=== PATIENT | female | born 1935 | race Caucasian/White ===

== ENCOUNTER 2022-02-15 16:00 | Inpatient (IN) | payer OTHER ==
[~2022-02-15] VITALS: Ht 157.5 cm; Wt 49.9 kg
[2022-02-15 16:11] VITALS: BP_SYST 129
[2022-02-15 18:39] LABS: BASOPHILS % (AUTO) 0.7 % (0.0-2.0); EOSINOPHILS # (AUTO) 0.3 K/uL (0.0-0.4); HEMATOCRIT 32.6 % (36-48); LYMPHOCYTES # (AUTO) 1.2 K/uL (1.0-5.5); LYMPHOCYTES % (AUTO) 17.9 % (20.5-51.5); MEAN CORPUSCULAR VOLUME 75 fL (79.0-98.0); MONOCYTES # (AUTO) 1.1 K/uL (0.0-1.0); MONOCYTES % (AUTO) 17.4 % (1.7-9.3); NEUTROPHILS # (AUTO) 3.9 K/uL (1.8-7.7); PLATELET COUNT (AUTO) 269 K/uL (130-430); RED BLOOD CELL COUNT(AUTO) 4.38 MIL/uL (4.2-6.2); RED CELL DISTRIBUTION WIDTH 17.6 % (9.0-15.0); WHITE BLOOD COUNT (AUTO) 6.5 K/uL (4.8-10.8)
[2022-02-15] MEDS ORDERED: IOHEXOL 350 mgI/mL, 150 ML INFUS..BTL IV ONE (18:50)
[2022-02-15 19:45] LABS: ANION GAP 2 (5-15); CALCIUM 8.4 mg/dL (8.4-11.0); CREATININE 0.55 mg/dL (0.55-1.30); GLUCOSE 92 mg/dL (70-99); POTASSIUM 4.9 mmol/L (3.5-5.1); UREA NITROGEN, BLOOD 12 mg/dL (8-21)
[2022-02-15 20:02] LABS: ALANINE AMINOTRANSFERASE 20 U/L (12-78); ALBUMIN 2.9 g/dL (3.4-4.8); ASPARTATE AMINOTRANSFERASE 24 U/L (10-37); TOTAL BILIRUBIN 0.7 mg/dL (0.0-1.0)
[2022-02-15 20:36] LABS: CHLORIDE 85 mmol/L (98-107)
[2022-02-15] MEDS ORDERED: NACL 0.9% 1,000 ML IV ONE (20:45)
[2022-02-15 21:15] LABS: BILIRUBIN,URINE NEGATIVE (NEGATIVE); BLOOD, URINE NEGATIVE (NEGATIVE); CLARITY/URINE CLEAR (CLEAR); COLOR,URINE YELLOW (YELLOW); GLUCOSE,URINE NEGATIVE (NEGATIVE); KETONES,URINE NEGATIVE (NEGATIVE); LEUKOCYTE ESTERASE ,URINE NEGATIVE (NEGATIVE); NITRITE, URINE NEGATIVE (NEGATIVE); PH,URINE 7.5 (5.0-8.0); PROTEIN URINE TRACE (NEGATIVE); UROBILINOGEN,URINE 0.2 (0.2-1.0)
[2022-02-15] MEDS ORDERED: ALBMDI INH (21:22)
[2022-02-15 21:35] LABS: BACTERIA,URINE None Seen /HPF (None Seen); MUCUS,URINE 1+ /LPF (None Seen); RBC,URINE NONE SEEN /HPF (0-3); WBC,URINE NONE SEEN /HPF (0-3)
[2022-02-15 21:36] LABS: URINE AMORPHOUS URATE 2+ /HPF (None Seen)
[2022-02-16 00:06] VITALS: BP_SYST 112
[2022-02-16] MEDS ORDERED: cefTRIAXone 1 GM IVPB PREMIX 50 ML IV SCH ×2 (05:00→10:00)
[2022-02-16] MEDS ORDERED: ONDANSETRON HCL 4 MG/2 ML VIAL IVP PRN (05:00)
[2022-02-16] MEDS: NORMAL SALINE 5 ML DISP.SYRIN IVF SCH ×6 (06:00→22:00)
[2022-02-16 06:30] VITALS: BP_SYST 112
[2022-02-16] MEDS: IPRATROPIUM BROM 0.5 MG/2.5 ML VIAL.NEB (ATROVENT) INH SCH ×3 (07:14→15:59)
[2022-02-16] MEDS: ALBUTEROL SULFATE 0.083% 2.5 MG/3 ML VIAL.NEB INH SCH ×3 (07:14→16:00)
[2022-02-16 08:30] VITALS: BP_SYST 120
[2022-02-16 09:32] LABS: BASOPHILS % (AUTO) 0.5 % (0.0-2.0); EOSINOPHILS # (AUTO) 0.2 K/uL (0.0-0.4); EOSINOPHILS % (AUTO) 3.6 % (0.0-4.0); HEMATOCRIT 31.6 % (36-48); LYMPHOCYTES # (AUTO) 1.2 K/uL (1.0-5.5); LYMPHOCYTES % (AUTO) 18.7 % (20.5-51.5); MEAN CORPUSCULAR VOLUME 75 fL (79.0-98.0); MONOCYTES # (AUTO) 1.2 K/uL (0.0-1.0); MONOCYTES % (AUTO) 19.4 % (1.7-9.3); NEUTROPHILS # (AUTO) 3.7 K/uL (1.8-7.7); NEUTROPHILS % (AUTO) 57.8 % (40.0-70.0); PLATELET COUNT (AUTO) 258 K/uL (130-430); RED CELL DISTRIBUTION WIDTH 17.1 % (9.0-15.0); WHITE BLOOD COUNT (AUTO) 6.4 K/uL (4.8-10.8)
[2022-02-16 10:38] LABS: ANION GAP 3 (5-15); CALCIUM 8.2 mg/dL (8.4-11.0); CREATININE 0.55 mg/dL (0.55-1.30); GLUCOSE 96 mg/dL (70-99); POTASSIUM 4.1 mmol/L (3.5-5.1); UREA NITROGEN, BLOOD 9 mg/dL (8-21)
[2022-02-16 10:48] LABS: ALANINE AMINOTRANSFERASE 21 U/L (12-78); ALBUMIN 2.6 g/dL (3.4-4.8); ASPARTATE AMINOTRANSFERASE 25 U/L (10-37); TOTAL BILIRUBIN 0.5 mg/dL (0.0-1.0)
[2022-02-16 12:00] VITALS: BP_SYST 120
[2022-02-16 16:05] VITALS: BP_SYST 132
[2022-02-16 16:57] LABS: CHLORIDE 85 mmol/L (98-107)
[2022-02-16 20:00] VITALS: BP_SYST 123
[2022-02-17] VITALS: BP_SYST 125
[2022-02-17] MEDS: IPRATROPIUM BROM 0.5 MG/2.5 ML VIAL.NEB (ATROVENT) INH SCH ×8 (05:38→23:50)
[2022-02-17] MEDS: ALBUTEROL SULFATE 0.083% 2.5 MG/3 ML VIAL.NEB INH SCH ×8 (05:38→23:49)
[2022-02-17] MEDS: NORMAL SALINE 5 ML DISP.SYRIN IVF SCH ×6 (06:00→21:26)
[2022-02-17 07:28] LABS: ALBUMIN 2.3 g/dL (3.4-4.8); ANION GAP 0 (5-15); ASPARTATE AMINOTRANSFERASE 18 U/L (10-37); CALCIUM 8.1 mg/dL (8.4-11.0); CREATININE 0.55 mg/dL (0.55-1.30); GLUCOSE 106 mg/dL (70-99); POTASSIUM 4.4 mmol/L (3.5-5.1); TOTAL BILIRUBIN 0.5 mg/dL (0.0-1.0); UREA NITROGEN, BLOOD 9 mg/dL (8-21)
[2022-02-17 08:38] LABS: BASOPHILS % (AUTO) 0.6 % (0.0-2.0); EOSINOPHILS # (AUTO) 0.1 K/uL (0.0-0.4); EOSINOPHILS % (AUTO) 2.7 % (0.0-4.0); HEMATOCRIT 30.6 % (36-48); LYMPHOCYTES # (AUTO) 0.8 K/uL (1.0-5.5); MEAN CORPUSCULAR VOLUME 76 fL (79.0-98.0); MONOCYTES % (AUTO) 19.3 % (1.7-9.3); NEUTROPHILS # (AUTO) 3.3 K/uL (1.8-7.7); NEUTROPHILS % (AUTO) 62.4 % (40.0-70.0); PLATELET COUNT (AUTO) 249 K/uL (130-430); RED BLOOD CELL COUNT(AUTO) 4.04 MIL/uL (4.2-6.2); RED CELL DISTRIBUTION WIDTH 16.9 % (9.0-15.0); WHITE BLOOD COUNT (AUTO) 5.3 K/uL (4.8-10.8)
[2022-02-17 08:53] LABS: CHLORIDE 85 mmol/L (98-107)
[2022-02-17 08:55] VITALS: BP_SYST 122
[2022-02-17 09:00] LABS: ALANINE AMINOTRANSFERASE 13 U/L (12-78)
[2022-02-17] MEDS: NACL 0.9% 1,000 ML IV SCH (10:38)
[2022-02-17] MEDS: HEPARIN SODIUM,PORCINE 5,000 UNITS/ML VIAL SUBCUT SCH ×2 (10:40→21:25)
[2022-02-17] MEDS: FAMOTIDINE PF 20 MG/2 ML VIAL IVP SCH (11:25)
[2022-02-17] MEDS: AZITHROMYCIN 250 MG in NS 250 ML IV SCH (11:26)
[2022-02-17] MEDS: MICAFUNGIN SODIUM 100 MG in NS 100 ML IV SCH (12:01)
[2022-02-17 12:20] VITALS: BP_SYST 124
[2022-02-17 16:32] VITALS: BP_SYST 130
[2022-02-17 20:00] VITALS: BP_SYST 132
[2022-02-17] MEDS: CEFEPIME 2 GM in D5W 100 ML IV SCH (21:14)
[2022-02-17] MEDS: LORazepam 2 MG/ML VIAL IVP PRN (21:23)
[2022-02-18 00:15] VITALS: BP_SYST 134
[2022-02-18] MEDS: IPRATROPIUM BROM 0.5 MG/2.5 ML VIAL.NEB (ATROVENT) INH SCH ×5 (03:00→19:35)
[2022-02-18] MEDS: ALBUTEROL SULFATE 0.083% 2.5 MG/3 ML VIAL.NEB INH SCH ×5 (03:00→19:00)
[2022-02-18] MEDS: NORMAL SALINE 5 ML DISP.SYRIN IVF SCH ×6 (06:12→22:23)
[2022-02-18] MEDS: NACL 0.9% 1,000 ML IV SCH (06:13)
[2022-02-18] MEDS: CEFEPIME 2 GM in D5W 100 ML IV SCH (09:06)
[2022-02-18] MEDS: HEPARIN SODIUM,PORCINE 5,000 UNITS/ML VIAL SUBCUT SCH ×2 (09:15→22:18)
[2022-02-18] MEDS: FAMOTIDINE PF 20 MG/2 ML VIAL IVP SCH (11:56)
[2022-02-18] MEDS: MICAFUNGIN SODIUM 100 MG in NS 100 ML IV SCH (11:57)
[2022-02-18] MEDS: AZITHROMYCIN 250 MG in NS 250 ML IV SCH (13:11)
[2022-02-18 18:26] VITALS: BP_SYST 114
[2022-02-18 18:33] VITALS: BP_SYST 142
[2022-02-18 20:00] VITALS: BP_SYST 140
[2022-02-18] MEDS: CEFEPIME 2 GM in NS 100 ML IV SCH (22:12)
[2022-02-19 01:32] VITALS: BP_SYST 144
[2022-02-19] MEDS: ALBUTEROL SULFATE 0.083% 2.5 MG/3 ML VIAL.NEB INH SCH ×6 (03:35→23:34)
[2022-02-19] MEDS: IPRATROPIUM BROM 0.5 MG/2.5 ML VIAL.NEB (ATROVENT) INH SCH ×6 (03:35→23:34)
[2022-02-19 04:30] VITALS: BP_SYST 117
[2022-02-19] MEDS: NORMAL SALINE 5 ML DISP.SYRIN IVF SCH ×5 (05:39→21:07)
[2022-02-19] MEDS: NACL 0.9% 1,000 ML IV SCH (08:20)
[2022-02-19] MEDS: CEFEPIME 2 GM in NS 100 ML IV SCH ×2 (08:26→20:59)
[2022-02-19] MEDS: HEPARIN SODIUM,PORCINE 5,000 UNITS/ML VIAL SUBCUT SCH ×2 (08:28→21:06)
[2022-02-19 09:42] VITALS: BP_SYST 132
[2022-02-19] MEDS: AZITHROMYCIN 250 MG in NS 250 ML IV SCH (11:18)
[2022-02-19] MEDS: FAMOTIDINE PF 20 MG/2 ML VIAL IVP SCH (12:51)
[2022-02-19] MEDS: MICAFUNGIN SODIUM 100 MG in NS 100 ML IV SCH (12:51)
[2022-02-19 14:24] LABS: BASOPHILS % (AUTO) 0.5 % (0.0-2.0); EOSINOPHILS # (AUTO) 0.1 K/uL (0.0-0.4); EOSINOPHILS % (AUTO) 1.4 % (0.0-4.0); HEMATOCRIT 33.5 % (36-48); LYMPHOCYTES # (AUTO) 0.7 K/uL (1.0-5.5); LYMPHOCYTES % (AUTO) 15.7 % (20.5-51.5); MEAN CORPUSCULAR VOLUME 77 fL (79.0-98.0); MONOCYTES # (AUTO) 0.8 K/uL (0.0-1.0); NEUTROPHILS # (AUTO) 2.9 K/uL (1.8-7.7); NEUTROPHILS % (AUTO) 65.4 % (40.0-70.0); PLATELET COUNT (AUTO) 225 K/uL (130-430); RED BLOOD CELL COUNT(AUTO) 4.37 MIL/uL (4.2-6.2); RED CELL DISTRIBUTION WIDTH 16.9 % (9.0-15.0); WHITE BLOOD COUNT (AUTO) 4.5 K/uL (4.8-10.8)
[2022-02-19 14:57] VITALS: BP_SYST 131
[2022-02-19 16:59] VITALS: BP_SYST 132
[2022-02-19 20:00] VITALS: BP_SYST 140
[2022-02-19 21:06] LABS: MYCOPLASMA PNEUMONIAE IgM <770 U/mL (0-769)
[2022-02-20 01:38] VITALS: BP_SYST 140
[2022-02-20] MEDS: ALBUTEROL SULFATE 0.083% 2.5 MG/3 ML VIAL.NEB INH SCH ×6 (03:14→23:54)
[2022-02-20] MEDS: IPRATROPIUM BROM 0.5 MG/2.5 ML VIAL.NEB (ATROVENT) INH SCH ×6 (03:14→23:54)
[2022-02-20] MEDS: NORMAL SALINE 5 ML DISP.SYRIN IVF SCH ×2 (05:29→12:01)
[2022-02-20] MEDS: NACL 0.9% 1,000 ML IV SCH ×2 (05:30→17:47)
[2022-02-20 08:15] VITALS: BP_SYST 139
[2022-02-20] MEDS: CEFEPIME 2 GM in NS 100 ML IV SCH ×2 (11:02→21:37)
[2022-02-20] MEDS: HEPARIN SODIUM,PORCINE 5,000 UNITS/ML VIAL SUBCUT SCH ×2 (11:03→21:39)
[2022-02-20] MEDS: FAMOTIDINE PF 20 MG/2 ML VIAL IVP SCH (12:01)
[2022-02-20] MEDS: AZITHROMYCIN 250 MG in NS 250 ML IV SCH (12:01)
[2022-02-20 13:59] VITALS: BP_SYST 149
[2022-02-20 17:41] VITALS: BP_SYST 153
[2022-02-20] MEDS: SODIUM CHLORIDE 500 MG TABLET PO SCH ×2 (17:46→21:38)
[2022-02-20 20:14] VITALS: BP_SYST 158
[2022-02-20 20:16] VITALS: BP_SYST 158
[2022-02-21] MEDS: NORMAL SALINE 5 ML DISP.SYRIN IVF SCH ×3 (06:00→21:43)
[2022-02-21] MEDS: IPRATROPIUM BROM 0.5 MG/2.5 ML VIAL.NEB (ATROVENT) INH SCH ×6 (06:42→23:09)
[2022-02-21] MEDS: ALBUTEROL SULFATE 0.083% 2.5 MG/3 ML VIAL.NEB INH SCH ×6 (06:43→23:09)
[2022-02-21 08:05] VITALS: BP_SYST 158
[2022-02-21 09:17] LABS: THYROID STIMULATING HORMONE 2.39 uIu/mL (0.36-3.74); URIC ACID 1.8 mg/dL (2.4-7.0)
[2022-02-21] MEDS: SODIUM CHLORIDE 500 MG TABLET PO SCH ×3 (10:29→20:45)
[2022-02-21] MEDS: CEFEPIME 2 GM in NS 100 ML IV SCH ×2 (10:32→20:45)
[2022-02-21] MEDS: HEPARIN SODIUM,PORCINE 5,000 UNITS/ML VIAL SUBCUT SCH ×2 (10:49→20:48)
[2022-02-21 12:00] VITALS: BP_SYST 145
[2022-02-21] MEDS: AZITHROMYCIN 250 MG in NS 250 ML IV SCH (12:06)
[2022-02-21] MEDS: NACL 0.9% 1,000 ML IV SCH (12:06)
[2022-02-21] MEDS: FAMOTIDINE PF 20 MG/2 ML VIAL IVP SCH (12:13)
[2022-02-21 16:32] VITALS: BP_SYST 153
[2022-02-21 20:00] VITALS: BP_SYST 145
[2022-02-22 01:12] VITALS: BP_SYST 150
[2022-02-22] MEDS: NORMAL SALINE 5 ML DISP.SYRIN IVF SCH ×3 (05:58→21:02)
[2022-02-22] MEDS: ALBUTEROL SULFATE 0.083% 2.5 MG/3 ML VIAL.NEB INH SCH ×5 (07:23→23:46)
[2022-02-22] MEDS: IPRATROPIUM BROM 0.5 MG/2.5 ML VIAL.NEB (ATROVENT) INH SCH ×5 (07:23→23:46)
[2022-02-22 08:00] VITALS: BP_SYST 147
[2022-02-22] MEDS: SODIUM CHLORIDE 500 MG TABLET PO SCH ×3 (08:22→20:58)
[2022-02-22] MEDS: CEFEPIME 2 GM in NS 100 ML IV SCH ×2 (08:23→20:55)
[2022-02-22] MEDS: HEPARIN SODIUM,PORCINE 5,000 UNITS/ML VIAL SUBCUT SCH ×2 (08:24→20:57)
[2022-02-22] MEDS: NACL 0.9% 1,000 ML IV SCH ×2 (08:25→16:16)
[2022-02-22 10:46] VITALS: BP_SYST 147
[2022-02-22] MEDS: FAMOTIDINE PF 20 MG/2 ML VIAL IVP SCH (11:25)
[2022-02-22 12:00] VITALS: BP_SYST 134
[2022-02-22 16:00] VITALS: BP_SYST 139
[2022-02-22] MEDS: LORazepam 2 MG/ML VIAL IVP PRN (16:31)
[2022-02-22 20:00] VITALS: BP_SYST 118
[2022-02-23 00:57] VITALS: BP_SYST 113
[2022-02-23] MEDS: ALBUTEROL SULFATE 0.083% 2.5 MG/3 ML VIAL.NEB INH SCH ×4 (05:22→15:57)
[2022-02-23] MEDS: IPRATROPIUM BROM 0.5 MG/2.5 ML VIAL.NEB (ATROVENT) INH SCH ×4 (05:23→15:57)
[2022-02-23 08:10] VITALS: BP_SYST 93
[2022-02-23] MEDS: CEFEPIME 2 GM in NS 100 ML IV SCH (08:47)
[2022-02-23] MEDS: HEPARIN SODIUM,PORCINE 5,000 UNITS/ML VIAL SUBCUT SCH (08:52)
[2022-02-23] MEDS: SODIUM CHLORIDE 500 MG TABLET PO SCH ×2 (08:53→15:00)
[2022-02-23] MEDS: FAMOTIDINE PF 20 MG/2 ML VIAL IVP SCH (11:18)
[2022-02-23 12:00] VITALS: BP_SYST 89
[2022-02-23] MEDS ORDERED: NS 500 ML IV ONE (13:45)
[2022-02-23 16:00] VITALS: BP_SYST 79
[2022-02-23 20:00] VITALS: BP_SYST 50
[2022-02-24] MEDS: IPRATROPIUM BROM 0.5 MG/2.5 ML VIAL.NEB (ATROVENT) INH SCH ×2 (00:20→00:21)
[2022-02-24] MEDS: ALBUTEROL SULFATE 0.083% 2.5 MG/3 ML VIAL.NEB INH SCH (00:20)
== END 2022-02-24 00:35 | DRG 871 ==
LOC: SED 16:00 → STU 22:06 → OBSVTOIN 02-17 14:51 → STU 02-18 20:15
PROVIDERS: ADMIT Internal Medicine; ATTEND Internal Medicine
PROC: 5A09457 Assistance with Respiratory Ventilation, 24-96 Consecutive Hours, Continuous Positive Airway Pressure (ICD-10-PCS; principal; 2022-02-22)
DX: A41.9 Sepsis, unspecified organism (principal); G93.41 Metabolic encephalopathy; J18.9 Pneumonia, unspecified organism; J96.21 Acute and chronic respiratory failure with hypoxia; J96.22 Acute and chronic respiratory failure with hypercapnia; E87.0 Hyperosmolality and hypernatremia; C34.90 Malignant neoplasm of unspecified part of unspecified bronchus or lung; E44.0 Moderate protein-calorie malnutrition; J44.0 Chronic obstructive pulmonary disease with (acute) lower respiratory infection; E88.09 Other disorders of plasma-protein metabolism, not elsewhere classified; D64.9 Anemia, unspecified; E87.8 Other disorders of electrolyte and fluid balance, not elsewhere classified; Z20.822 Contact with and (suspected) exposure to COVID-19; Z88.6 Allergy status to analgesic agent; Z88.5 Allergy status to narcotic agent; Z79.899 Other long term (current) drug therapy; Z90.710 Acquired absence of both cervix and uterus; Z90.49 Acquired absence of other specified parts of digestive tract; Z85.72 Personal history of non-Hodgkin lymphomas; Z85.118 Personal history of other malignant neoplasm of bronchus and lung; Z68.20 Body mass index [BMI] 20.0-20.9, adult
CPT/HCPCS: 36415; 36600; 70450-TC; 71045; 71275; 76376; 80053; 81000; 82533; 82803-TC; 82962; 83605; 83880; 84443; 84484; 84550; 85025; 85651-TC; 86738; 87040; 87305; 93005; 93306; 94640; 94660; 94760; 96360; 97110-GP; 97116-GP; 97161-GP; 99285; G0378; J0456; J0692; J0696; J1644; J2060; J2248; J3490; J7050; J7060; J7613; Q9967